=== PATIENT | female | born 1950 | race Caucasian/White ===

== ENCOUNTER 2017-04-27 15:24 | Emergency (ER) | payer BC, MEDICARE ==
[~2017-04-27] VITALS: Wt 68.0 kg
[~2017-04-27 15:24] MED LIST: NKHM; VOLTAREN50 M1 PO
[2017-04-27 16:27] LABS: BILIRUBIN NEGATIVE (NEGATIVE); BLOOD 2+ (NEGATIVE); CLARITY CLEAR (CLEAR); COLOR YELLOW (YELLOW); GLUCOSE NEGATIVE (NEGATIVE); KETONE 3+ (NEGATIVE); LEUKO ESTERASE NEGATIVE (NEGATIVE); NITRITE NEGATIVE (NEGATIVE); PH 6.5 (5.0-9.0); UROBILINOGEN 0.2 E.U./dl (0.2-1.0)
[2017-04-27 16:39] LABS: BACTERIA TRACE; CALCIUM OXALATE CRYSTALS 1+; EPITHELIAL CELLS 0-2; RBC 16-20 rbc/hpf (0-2)
[2017-04-27 16:55] LABS: BASO # 0.1 10*3/uL (0.0-0.1); BASO % 0.4 % (0.0-1.0); HEMATOCRIT 42.1 % (37.0-47.0); HEMOGLOBIN 14.4 g/dl (12.0-16.0); LYMPH # 0.9 10*3/uL (1.3-4.4); LYMPH % 8.3 % (27.0-41.0); MEAN CELL VOLUME 93.1 fl (81.0-99.0); MEAN CORPUSCULAR HGB 31.9 pg (27.0-31.0); MEAN CORPUSCULAR HGB CONC 34.2 g/dl (33.0-37.0); MEAN PLATELET VOLUME 9.2 fl (9.6-12.3); MONO # 0.3 10*3/uL (0.1-1.0); NEUT # 9.8 10*3/uL (2.3-7.9); PLATELET COUNT AUTOMATED 321 10*3/uL (130-400); RED BLOOD COUNT 4.52 10*6/uL (4.10-5.10); RED CELL DISTRI WIDTH 11.9 % (0-14.5); WHITE BLOOD COUNT 11.1 10*3/uL (4.8-10.8)
[2017-04-27 17:13] LABS: ALBUMIN 4.2 gm/dl (3.1-4.5); ALKALINE PHOSPHATASE 125 U/L (45-117); BUN 13 mg/dl (7-24); CHLORIDE 104 mmol/L (98-107); CREATININE 0.76 mg/dL (0.55-1.02); LIPASE 100 U/L (73-393); POTASSIUM 3.5 mmol/L (3.5-5.1); SGOT/AST 23 IU/L (3-35); SGPT/ALT 28 U/L (12-78); SODIUM 140 mmol/L (136-145); TOTAL PROTEIN 7.4 gm/dL (6.4-8.2)
[2017-04-27 19:04] VITALS: BP 135/69
[2017-04-27] MEDS ORDERED: AMINOPHYLLIN200 MG PO (19:23)
[2017-04-27] MEDS ORDERED: Zofran4 MG PO (19:23)
[2017-04-27] MEDS ORDERED: PYRIDIUM100 MG PO (19:23)
[2017-04-27] MEDS ORDERED: NORCO 5-325 TA1 EACH PO (19:23)
== END 2017-04-27 19:33 | disposition home or self-care (01) ==
LOC: ED 15:24
PROVIDERS: Nurse Practitioner Family
DX: N30.01 Acute cystitis with hematuria (principal); R82.99 Other abnormal findings in urine; K80.80 Other cholelithiasis without obstruction

== ENCOUNTER 2019-07-29 12:58 | Emergency (ER) | payer MEDICARE ==
[~2019-07-29] VITALS: Ht 167.6 cm; Wt 65.8 kg
[~2019-07-29 12:58] MED LIST changes: +AMINOPHYLLIN200 MG PO; +NORCO 5-325 TA1 EACH PO; +PYRIDIUM100 MG PO; +Zofran4 MG PO
[2019-07-29 13:02] VITALS: BP 126/35
[2019-07-29 13:33] LABS: BASO # 0.1 10*3/uL (0.0-0.1); BASO % 0.9 % (0.0-1.0); EOS # 0.1 10*3/uL (0.0-0.4); EOS % 0.7 % (1.0-4.0); HEMATOCRIT 40.4 % (37.0-47.0); LYMPH # 1.8 10*3/uL (1.3-4.4); LYMPH % 19.5 % (27.0-41.0); MEAN CELL VOLUME 96.9 fl (81.0-99.0); MEAN CORPUSCULAR HGB 32.9 pg (27.0-31.0); MEAN CORPUSCULAR HGB CONC 33.9 g/dl (33.0-37.0); MEAN PLATELET VOLUME 8.8 fl (9.6-12.3); MONO # 0.5 10*3/uL (0.1-1.0); NEUT # 6.5 10*3/uL (2.3-7.9); NEUT % 72.7 % (47.0-73.0); PLATELET COUNT AUTOMATED 312 10*3/uL (130-400); RED BLOOD COUNT 4.17 10*6/uL (4.10-5.10)
[2019-07-29 13:54] LABS: ALBUMIN 3.6 gm/dl (3.1-4.5); ALKALINE PHOSPHATASE 89 U/L (45-117); BUN 14 mg/dl (7-24); CHLORIDE 105 mmol/L (98-107); CREATININE 0.79 mg/dL (0.55-1.02); LIPASE 107 U/L (73-393); POTASSIUM 3.8 mmol/L (3.5-5.1); SGOT/AST 19 IU/L (3-35); SGPT/ALT 26 U/L (12-78); SODIUM 137 mmol/L (136-145); TOTAL PROTEIN 7.1 gm/dL (6.4-8.2)
[2019-07-29 14:48] LABS: BACTERIA 1+; BILIRUBIN NEGATIVE (NEGATIVE); BLOOD 3+ (NEGATIVE); CALCIUM OXALATE CRYSTALS 1+; CLARITY SL CLOUDY (CLEAR); COLOR YELLOW (YELLOW); GLUCOSE NEGATIVE (NEGATIVE); KETONE NEGATIVE (NEGATIVE); LEUKO ESTERASE NEGATIVE (NEGATIVE); NITRITE NEGATIVE (NEGATIVE); RBC TNTC rbc/hpf (0-2); UROBILINOGEN 0.2 E.U./dl (0.2-1.0); WBC 0-2 wbc/hpf (0-5)
[2019-07-29] MEDS ORDERED: FLOMAX0.4 MG PO (15:59)
[2019-07-29] MEDS ORDERED: NORCO 5-325 TA1 EACH PO (15:59)
[2019-07-29] MEDS ORDERED: ZOFRAN4 MG PO (15:59)
== END 2019-07-29 16:04 | disposition home or self-care (01) ==
LOC: ED 12:58
PROVIDERS: Nurse Practitioner Family
DX: N13.2 Hydronephrosis with renal and ureteral calculous obstruction (principal)

== ENCOUNTER 2021-08-13 10:16 | Emergency (ER) | payer MEDICARE ==
[~2021-08-13] VITALS: Ht 167.6 cm; Wt 65.8 kg
[~2021-08-13 10:16] MED LIST changes: +FLOMAX0.4 MG PO; +ZOFRAN4 MG PO
[2021-08-13 10:38] VITALS: BP 159/68
[2021-08-13] MEDS ORDERED: PREDNISONE20 M1 PO (11:31)
== END 2021-08-13 11:47 | disposition home or self-care (01) ==
LOC: ED 10:16
DX: L25.9 Unspecified contact dermatitis, unspecified cause (principal)